=== PATIENT | female | born 1945 | race Caucasian/White ===

== ENCOUNTER → 2018-10-07 14:07 | Outpatient (CLI) | payer MEDICARE, OTHER, SELFPAY ==
[2018-10-07 14:45] LABS: Basophils # 0.1 K/mm3 (0-0.2); Basophils % 0.6 % (0.1-2.0); Eosinophils # 0.3 K/mm3 (0.0-0.4); Eosinophils % 2.5 % (0.1-12.0); Hemoglobin 12.7 g/dL (12.2-16.2); Lymphocytes # 6.6 K/mm3 (0.7-4.5); Lymphocytes % 50.1 % (10-50); Mean Corpuscular HGB Conc 32.7 g/dL (31.8-35.4); Mean Corpuscular Hemoglobin 28.8 pg (27.0-31.2); Mean Corpuscular Volume 88.2 fl (81-99); Mean Platelet Volume 6.8 fl (7.4-10.4); Monocytes # 0.4 K/mm3 (0.1-1.0); Monocytes % 2.9 % (1.7-9.3); Neutrophils # 5.7 K/mm3 (1.8-7.8); Neutrophils % 43.9 % (37.0-80.0); Platelet Count 414 K/mm3 (142-424); Red Blood Count 4.43 M/mm3 (4.20-5.40); Red Cell Distribution Width 13.4 % (11.5-17.5); White Blood Count 13.1 K/mm3 (4.8-10.8)
[2018-10-07 14:53] LABS: MANUAL DIFFERENTIAL MANUAL DIFFERENTIAL (MANUAL DIFF)
[2018-10-07 15:43] LABS: Free T4 (Free Thyroxine) 1.01 ng/dl (0.76-1.46); Thyroid Stimulating Hormone 2.17 uIU/ml (0.358-3.740)
[2018-10-07 16:25] LABS: Eosinophils % 4 % (0-3); Lymphocytes % 48 % (10-50); Monocytes % 3 % (2-9); Neutrophils % 45 % (42-76); Platelet Estimate Normal; RBC Morphology Normal; Total Cells Counted 100
== END ==
PROVIDERS: Visit Provider Otolaryngology
DX: E03.9 Hypothyroidism, unspecified (principal); Z01.818 Encounter for other preprocedural examination; L98.9 Disorder of the skin and subcutaneous tissue, unspecified
CPT/HCPCS: 36415; 84439; 84443; 85007; 85025; 93005

== ENCOUNTER → 2018-10-25 09:33 | Outpatient (CLI) | payer MEDICARE, OTHER, SELFPAY ==
--- NOTE | 2018-10-25 09:35 | XR_ITS ---
XR DEXA axial skeleton HISTORY: ITS.REASON: POST MENOPAUSAL SCREENING ORDERING PHYSICIAN: Andres Hendrix MD PATIENT AGE: 73 years COMPARISON: None FINDINGS: The BMD measured at the Left femoral neck is 0.760 g/cm squared with a T score of -2.0. This is considered Osteopenic according to the World Health Organization criteria. Fracture risk is Moderate. The L1 L4 density T score of -0.2.. IMPRESSION: Osteopenia with moderate fracture risk. Treatment is advised. Suggest follow-up exam September 2020
--- NOTE | 2018-10-25 09:35 | US_ITS ---
US thyroid HISTORY: Thyroid nodule follow-up ITS.REASON: Hypothyroid ORDERING PHYSICIAN: Andres Hendrix MD PATIENT AGE: 73 years Comparison: None FINDINGS: The isthmus is slightly prominent at 6 mm. The right lobe is 4.4 x 1.7 x 1.5 cm. Nodule A: 7 x 5 mm mixed echogenicity. Nodule B: Upper pole isoechoic 11 x 8 mm. Nodule C: Mid polar region 6 mm isoechoic Nodule B lower pole cystic at 4 mm The left lobe is 3.9 x 1.3 x 1.2 cm. 11 mm isoechoic nodule superior pole IMPRESSION: Mildly enlarged right lobe of the thyroid gland with multiple bilateral nodules which have a low level of suspicion for malignancy
== END ==
PROVIDERS: PCP Pediatrics; Visit Provider Otolaryngology
DX: E03.9 Hypothyroidism, unspecified (principal); Z13.820 Encounter for screening for osteoporosis; Z78.0 Asymptomatic menopausal state
CPT/HCPCS: 76536; 77080

== ENCOUNTER → 2018-11-01 11:16 | Outpatient (CLI) | payer MEDICARE, OTHER, SELFPAY ==
[2018-11-01 13:27] LABS: Free T4 (Free Thyroxine) 1.01 ng/dl (0.76-1.46); Thyroid Stimulating Hormone 3.59 uIU/ml (0.358-3.740)
[2018-11-02 08:33] LABS: Thyroid Peroxidase Antibodies 10 IU/mL (0-34)
[2018-11-04 06:16] LABS: Thyroid Stimulating Immunoglob <0.10 IU/L (0.00-0.55)
== END ==
PROVIDERS: Visit Provider Otolaryngology
DX: E03.9 Hypothyroidism, unspecified (principal)
CPT/HCPCS: 36415; 84439; 84443; 84445; 86376

== ENCOUNTER → 2019-05-13 14:06 | Outpatient (CLI) | payer MEDICARE, OTHER, SELFPAY ==
--- NOTE | 2019-05-13 14:07 | US_ITS ---
PROCEDURE: US THYROID CLINICAL INDICATION: Enlarged thyroid Follow-up thyroid nodules COMPARISON: THY US thyroid from 10/25/2018 FINDINGS: Right lobe: The right lobe is 4.5 x 1.8 x 2.2 cm. There is a 1 cm by 1.2 cm lobular nodule within the right lobe superiorly fairly well-circumscribed and mildly hypoechoic unchanged. The the spongiform nodule noted in the mid lobe at 1 cm. 1.7 x 1.7 cm hypoechoic area lower pole not significantly changed considering the difference in scanning technique. There is a 4 mm cyst in the mid polar region unchanged. Left lobe: The 3.8 x 1.6 x 1.3 cm. Isoechoic 1 cm area mid polar region unchanged Isthmus: The isthmus is thickened at 7 mm Additional findings: IMPRESSION: Enlarged thyroid gland with multiple nodular areas unchanged Dictated by: Zi Ocampo MD 05/13/2019 17:55 Electronically signed by Zi Ocampo MD in [place] 05/13/2019 17:55
== END ==
PROVIDERS: PCP Pediatrics; Visit Provider Otolaryngology
DX: E04.9 Nontoxic goiter, unspecified (principal)
CPT/HCPCS: 76536

== ENCOUNTER → 2019-12-02 12:41 | Outpatient (CLI) | payer MEDICARE, SELFPAY ==
--- NOTE | 2019-12-02 12:41 | US_ITS ---
PROCEDURE: US THYROID CLINICAL INDICATION: thyroid nodule Follow-up thyroid nodules COMPARISON: THY US thyroid from 10/25/2018 US THYROID from 05/13/2019 FINDINGS: The right lobe is 4.8 x 2 x 1.5 cm. There is heterogeneous echogenicity. The images are somewhat limited technically. In the upper pole there is a 17 x 6 mm ill-defined hypoechoic nodular region previously at 12 x 7 mm. This nodule is not well delineated and the measurements are questionable. An 18 x 9 mm hypoechoic nodules present also in the upper pole. A 19 by 12 mm nodules noted in the lower pole not significantly changed. The left lobe is 3.9 0.2 cm. There is a 7 mm isoechoic nodule in the mid polar region on the left not significantly changed. IMPRESSION: Limited exam. Multiple bilateral nodules. The nodules in the upper pole on the right hip may have increased in size. This however is difficult to ascertain due to the technique. Probably overall no significant change considering the difference in technique. Suggest follow-up exam in 3 months with direct physician supervision Dictated by: Zi Ocampo MD 12/05/2019 10:05 Electronically signed by Zi Ocampo MD in [place] 12/05/2019 10:05
[2019-12-02 16:51] LABS: Free T4 (Free Thyroxine) 0.93 ng/dl (0.78-2.19)
[2019-12-02 17:06] LABS: Thyroid Stimulating Hormone 3.11 uIU/mL (0.465-4.68)
== END ==
PROVIDERS: PCP Pediatrics; Visit Provider Otolaryngology
DX: E04.9 Nontoxic goiter, unspecified (principal)
CPT/HCPCS: 36415; 76536; 84439; 84443

== ENCOUNTER → 2020-03-12 12:53 | Outpatient (CLI) | payer MEDICARE, SELFPAY ==
--- NOTE | 2020-03-12 12:54 | US_ITS ---
PROCEDURE: US THYROID CLINICAL INDICATION: thyroid nodule Follow-up thyroid nodule COMPARISON: US US THYROID from 12/02/2019 FINDINGS: The isthmus is prominent at 8 mm. The right lobe is 4.4 x 2 x 2.1 cm. There is a 14 x 7 mm isodense slightly hypoechoic nodule in the upper pole unchanged posteriorly. In the mid polar region there is a 10 mm isoechoic nodule unchanged. Small cyst is present in the lower pole at 4 mm with a central septation. In the lower pole there is a spongiform appearing nodule at 19 by 17 mm not significantly changed The left lobe is 3.8 x 1.5 x 1.5 cm. Isoechoic nodules present posteriorly and centrally at 7 mm unchanged IMPRESSION: No change enlarged right lobe of the thyroid gland with multiple nodules and no change in the single left thyroid nodule. Dictated by: Zi Ocampo MD 03/12/2020 15:03 Zi Ocampo MD in [place] 03/12/2020 15:05
== END ==
PROVIDERS: PCP Pediatrics; Visit Provider Otolaryngology
DX: E04.1 Nontoxic single thyroid nodule (principal)
CPT/HCPCS: 76536

== ENCOUNTER → 2020-04-04 08:36 | Outpatient (CLI) | payer MEDICARE, SELFPAY ==
--- NOTE | 2020-04-04 08:46 | CT_ITS ---
PROCEDURE: CT SOFT TISSUE NECK WO/W CON CLINICAL HISTORY: trachea displacement/goiter no palpable areas c/o wheezing 75ml optiray 350 US 03/12/[address] COMPARISON: US US THYROID from 03/12/2020 TECHNIQUE: Contrast: 75 mL Optiray 350 IV Axial images obtained with sagittal and coronal reformats. All CT scans at the facility use one or more dose reduction, viz: automated exposure control, ma/kV adjustment per patient size (including targeted exams where dose is matched to indication, i.e. head), or iterative reconstruction technique. FINDINGS: Unenhanced images show bilateral punctate calcifications within the tonsillar area consistent with tonsillar calcified crypts. The nasopharynx, oropharynx, and hypopharynx have an unremarkable appearance. Epiglottis appears unremarkable. The salivary glands have an unremarkable appearance. No dominant adenopathy is evident. There are few small cervical lymph nodes. The isthmus of the thyroid gland is slightly prominent more so on the right. The trachea is very slightly to the left of midline but does not appear to be a result of compression by the thyroid gland. The esophagus is midline. The lung apices are clear. There are mild degenerative changes in the cervical spine at C5-C6. IMPRESSION: Essentially unremarkable CT of the neck without and with contrast. The trachea is very slightly to the left of midline but without obvious compression. The isthmus of the thyroid is slightly prominent slightly more so on the right side. Dictated by: Zi Ocampo MD 04/05/2020 12:22 Zi Ocampo MD in [place] 04/05/2020 12:22
[2020-04-04 09:00] LABS: Blood Urea Nitrogen 22 mg/dl (7-17); Estimated Glomerular Filt Rate 55 ml/min (>60); GFR (African American) 66 ML/MIN (>60)
--- NOTE | 2020-04-04 09:30 | US_ITS ---
PROCEDURE: US FNA THYROID CLINICAL INDICATION: Right thyroid dominant nodule COMPARISON: US US THYROID from 03/12/2020 TECHNIQUE: Pre biopsy images performed confirming the presence of a dominant solid nodule in the right lobe of the thyroid gland. Following obtaining informed consent, using aseptic technique and local anesthesia with buffered lidocaine, fine-needle aspiration was performed of the nodule of interest using sonographic guidance. 3 passes were made into the nodule with a 21 gauge needle. Specimen was given to cytology. The patient tolerated the procedure well without evidence of immediate complications and left radiology suite in stable condition FINDINGS: CYTOLOGY: Negative for malignant cells. Please see cytology report IMPRESSION: Uneventful ultrasound-guided FNA of the right lobe of the thyroid gland negative for malignant cells. Dictated by: Zi Ocampo MD 04/09/2020 09:28 Zi Ocampo MD in [place] 04/09/2020 09:28
== END ==
PROVIDERS: PCP Pediatrics; Visit Provider Otolaryngology
DX: E04.1 Nontoxic single thyroid nodule (principal)
CPT/HCPCS: 10005; 36415; 70492; 76942; 82565; 84520; 88173; Q9967

== ENCOUNTER → 2020-04-18 13:50 | Outpatient (CLI) | payer MEDICARE, SELFPAY | PROVIDERS: PCP Pediatrics; Visit Provider Otolaryngology | DX: G47.33 Obstructive sleep apnea (adult) (pediatric) (principal) ==

== ENCOUNTER → 2020-04-30 13:22 | Outpatient (CLI) | payer MEDICARE, SELFPAY | PROVIDERS: PCP Pediatrics; Visit Provider Otolaryngology | DX: G47.33 Obstructive sleep apnea (adult) (pediatric) (principal) | CPT/HCPCS: G0399 ==

== ENCOUNTER 2022-08-17 14:58 | Observation (INO) | payer MEDICARE, SELFPAY ==
[2022-08-17] VITALS (15 sets, daily range): BP systolic 103–192; BP diastolic 48–99; PULSE 73–92; RESP 17–23; TEMP 36.4–37; O2SAT 94–98; BMI 48.0; BMI 48.6
--- NOTE | 2022-08-17 14:56 | ECG_ITS ---
APPROVED REPORT Exam: Resting ECG HR:92 bpm ECG Measurements Heart Rate 92 AXES KS 158 P 76 QRSd 84 QRS -4 QT 361 T 72 QTc 410 Conclusion SINUS RHYTHM MINIMAL ST DEPRESSION [0.025+ mV ST DEPRESSION] BORDERLINE ECG UNCONFIRMED REPORT Electronically signed by : Jonel Damico MD 08/18/2022 18:53:28
--- NOTE | 2022-08-17 15:02 | XR_ITS ---
PROCEDURE INFORMATION: Exam: XR Chest Exam date and time: 08/17/2022 3:20 PM Age: 76 years old Clinical indication: Sternal or substernal pain; Additional info: Chest pain TECHNIQUE: Imaging protocol: Radiologic exam of the chest. Views: 2 views. COMPARISON: CT SOFT TISSUE NECK WO/W CON 04/04/2020 9:18 AM FINDINGS: Lungs: Unremarkable. No consolidation. Pleural spaces: Unremarkable. No pleural effusion. No pneumothorax. Heart/Mediastinum: Unremarkable. No cardiomegaly. Bones/joints: Unremarkable. IMPRESSION: No acute findings.
[2022-08-17 15:18] LABS: Anion Gap 11.1 mEq/L (5-15); Basophils # 0.3 K/mm3 (0-0.2); Basophils % 1.6 % (0.1-2.0); Blood Urea Nitrogen 16 mg/dl (7-17); Calcium 9.1 mg/dl (8.4-10.2); Carbon Dioxide 27 mmol/L (22.0-30.0); Chloride 105 mmol/L (98-107); Creatinine Clearance Estimated 39 mL/min (50-200); Eosinophils # 0.5 K/mm3 (0.0-0.4); Eosinophils % 2.7 % (0.1-12.0); Estimated Glomerular Filt Rate 49 ml/min (>60); GFR (African American) 59 ML/MIN (>60); Glucose 251 mg/dl (74-100); Lymphocytes # 8.4 K/mm3 (0.7-4.5); Lymphocytes % 50.3 % (10-50); Mean Corpuscular HGB Conc 33.2 g/dL (31.8-35.4); Mean Corpuscular Hemoglobin 27.4 pg (27.0-31.2); Mean Corpuscular Volume 82.4 fl (81-99); Mean Platelet Volume 7.8 fl (7.4-10.4); Monocytes # 0.4 K/mm3 (0.1-1.0); Monocytes % 2.5 % (1.7-9.3); Neutrophils # 7.2 K/mm3 (1.8-7.8); Platelet Count 422 K/mm3 (142-424); Potassium 4.1 mmoL/L (3.5-5.1); Red Blood Count 4.37 M/mm3 (4.20-5.40); Red Cell Distribution Width 15.1 % (11.5-17.5); Sodium 139 mmol/L (136-145); White Blood Count 16.7 K/mm3 (4.8-10.8)
[2022-08-17 15:22] LABS: MANUAL DIFFERENTIAL MANUAL DIFFERENTIAL (MANUAL DIFF)
[2022-08-17 15:40] LABS: Troponin I < 0.01 ng/ml (0.00-0.034)
--- NOTE | 2022-08-17 16:15 | PC.NURSE ---
PT FAMILY MEMBER AT BEDSIDE NO COMPLAINTS AT THIS TIME
[2022-08-17 16:24] LABS: Lymphocytes % 45 % (10-50); Microcytosis 1+; Monocytes % 8 % (2-9); Neutrophils % 47 % (42-76); Platelet Estimate Normal; Total Cells Counted 100
--- NOTE | 2022-08-17 17:39 | HMH.EDCP ---
Discharge Plan Disposition Patient Disposition: Admitted as Observation Condition: Good Chief Complaint: Chest Pain Prescriptions Prescriptions: No Action atorvastatin 40 mg tablet 40 mg PO DAILY carvedilol 6.25 mg tablet 6.25 mg PO DAILY omeprazole 40 mg capsule,delayed release(DR/EC) 40 mg PO DAILY metformin 1,000 mg tablet 1,000 mg PO BID glimepiride 4 mg tablet 4 mg PO DAILY montelukast 10 mg tablet 10 mg PO DAILY naproxen 500 mg tablet 500 mg PO BID PRN (Reason: Arthritis) olmesartan-hydrochlorothiazide 40-12.5 mg tablet 1 tab PO DAILY insulin glargine [Lantus Solostar U-100 Insulin] 100 unit/mL (3 mL) insulin pen See Protocol SQ ACHS Protocol: Insulin Corrective Low-Dose Regimen Condition: Fingerstick Blood Glucose Dose/Route: Insulin Units Condition: 151-200 mg/dl Dose/Route: 2 unit/SQ Condition: 201-250 mg/dl Dose/Route: 4 units/SQ Condition: 251-300 mg/dl Dose/Route: 6 units/SQ Condition: 301-350 mg/dl Dose/Route: 8 units/SQ Condition: 351-400 mg/dl Dose/Route: 10 units/SQ Condition: 401-450 mg/dl Dose/Route: 12 units/SQ Condition: > 450 mg/dl Dose/Route: CALL MD Protocol Text: Low Intensity Sliding Scale Insulin Referrals Follow up/Referrals: Jonas Villalba II, MD [Primary Care Provider] - See instructions Clinical Impressions Clinical Impression: Chest pain Discharge ED Provider: Greg Sanchez Chest Pain HPI General Chief Complaint: Chest Pain Stated Complaint: chest pain Time Seen by Provider: 08/17/22 17:54 Mode of Arrival: Ambulatory Source of Information: Patient Limitations: No Limitations Description of Symptoms (Recalled from ER Triage Doc. by RN): Pt reports constant chest pain since August 04 that worsened last night with left arm tingling and radiating to my left shoulder and back , reports [place] provider ran EKG and referred to stress test 08/04 but recieved no f/u call for appt yet, NAD History of Present Illness HPI narrative: Patient presents to the emergency department with chest pain. She states for the last 2 weeks it has become more frequent in nature lasting several minutes at a time. She mostly describes this pain in her left chest radiating into her left arm with some left arm tingling. She does describes associated shortness of breath. Denies any nausea, vomiting, previous history of cardiac related problems. Patient denies having cardiac catheterization in the past. Denies having a process planner. States that she still has some left-sided chest pain. States that the pain has improved GEOVANY Score for Non-Stemi Age of Patient: 70-79 years old Heart Rate: 90-109 bpm Systolic Blood Pressure: 120-139 mmhg Serum Creatinine: 0.80-1.19 mg/dl CHF Killip Class: I-No CHF Other Risk Factors: None Non-Stemi Risk Score: 131 Risk Stratification: 109-140 = Intermediate Ri Related Data On Oral Contraceptives: No Home Medications Medication Instructions Recorded Confirmed atorvastatin 40 mg tablet 40 mg PO DAILY Cholesterol 08/17/22 08/17/22 carvedilol 6.25 mg tablet 6.25 mg PO DAILY Heart 08/17/22 08/17/22 glimepiride 4 mg tablet 4 mg PO DAILY DM II 08/17/22 08/17/22 insulin glargine 100 unit/mL (3 See Protocol SQ ACHS Hyperglycemia 08/17/22 08/17/22 mL) subcutaneous pen (Lantus Solostar U-100 Insulin) metformin 1,000 mg tablet 1,000 mg PO BID DM II 08/17/22 08/17/22 montelukast 10 mg tablet 10 mg PO DAILY Seasonal Allergies 08/17/22 08/17/22 naproxen 500 mg tablet 500 mg PO BID PRN Arthritis 08/17/22 08/17/22 olmesartan 40 1 tab PO DAILY Cholesterol 08/17/22 08/17/22 mg-hydrochlorothiazide 12.5 mg tablet omeprazole 40 mg capsule,delayed 40 mg PO DAILY GERD 08/17/22 08/17/22 release Allergies Allergy/AdvReac Type Severity Reaction Status Date / Time No Known Allergies Allergy Verified 07/04/20 13:36 [facility] Disclaimer: The information cont
--- NOTE | 2022-08-17 17:50 | PC.NURSE ---
Pt's second troponin drawn and sent
--- NOTE | 2022-08-17 17:54 | PC.NURSE ---
rounded on pt, no needs at this time
[2022-08-17 18:03] LABS: Hemoglobin A1C 7.8 % (4.0-6.0)
--- NOTE | 2022-08-17 18:04 | PC.NURSE ---
CHECKED ON PT STATED NO COMPLAINTS AT THIS TIME, FAMILY MEMBER AT BEDSIDE
[2022-08-17 18:14] LABS: Coronavirus 19, PCR Not Detected (NotDetected)
[2022-08-17 18:15] LABS: Influenza A, PCR Not Detected (NotDetected); Influenza B, PCR Not Detected (NotDetected)
[2022-08-17 18:26] LABS: Troponin I < 0.01 ng/ml (0.00-0.034)
--- NOTE | 2022-08-17 19:25 | PC.NURSE ---
nelia bradford on second floor states she will be sending staff down to transport pt to assigned room -NELIA Polo
--- NOTE | 2022-08-17 19:51 | PC.NURSE ---
Pt arrived to floor via stretcher @ 194.
--- NOTE | 2022-08-17 19:52 | PC.NURSE ---
Pt arrived to floor via wheelchair @ 1944
--- NOTE | 2022-08-17 20:11 | EXP.HP ---
History of Present Illness *Admission Date: 08/17/22 *Reason for visit:: Chest pain *History of present illness: This is a 76-year-old female with a past medical history of T1DM hypertension who presents emergency department midsternal chest pain. She reports midsternal chest pain started approximately 2 weeks ago. She saw her primary care provider who performed EKG that was essentially negative. She reports that she is was to follow-up for a stress test but has yet to schedule this. She reports over the last several days she has had worsening substernal chest pain that has radiated into her left shoulder, left arm and is associated with tingling and numbness of her left arm. She also reports increased shortness of breath over the past year, worse with ambulation. She also states that she has had some minimal bilateral lower extremity edema recently. She denies cough, fever, palpitations. Emergency department work-up mostly unremarkable. EKG negative. Nitro was effective for her midsternal chest pain. Given increased for cardiac disease, she will be admitted for further evaluation [facility] Disclaimer: The information contained in this section may have been updated after the patient was seen, as this information can be updated by other users. Medical History Arthritis GERD (gastroesophageal reflux disease) History of skin cancer HLD (hyperlipidemia) HTN (hypertension) Morbid obesity YOANA (obstructive sleep apnea) Type 2 diabetes mellitus Surgical History (Updated 08/17/22 @ 18:12 by Gala Espitia RN) History of bilateral knee arthroplasty History of bladder surgery History of cholecystectomy History of tubal ligation Hx of local excision of skin lesion Family History (Updated 08/17/22 @ 18:09 by Gala Espitia RN) Family history of stroke Family history of diabetes mellitus Family history of hypertension Social History (Updated 08/17/22 @ 18:12 by Gala Espitia RN) Smoking Status: Never smoker alcohol intake: never substance use type: denies use current occupational status: retired Travel in the last 8 weeks: None household members: spouse housing: house marital status: current occupational exposures/hazards: No caffeine: Yes Review of Systems Review of Systems Review of systems:: pertinent systems reviewed and negative unless documented below *Cardiovascular Cardiovascular: Reports chest pain, Reports dyspnea and Reports leg edema *Respiratory Respiratory: Reports dyspnea Meds Home Medications and Allergies Home Medications Medication Instructions Recorded Confirmed Type glimepiride 4 mg tablet 4 mg PO DAILY Diabetes 08/17/22 08/17/22 History insulin glargine 100 unit/mL (3 70 unit SQ AM Diabetes 08/17/22 08/18/22 History mL) subcutaneous pen (Lantus Solostar U-100 Insulin) metformin 1,000 mg tablet 1,000 mg PO BID Diabetes 08/17/22 08/17/22 History montelukast 10 mg tablet 10 mg PO PM Seasonal Allergies 08/17/22 08/18/22 History naproxen 500 mg tablet 500 mg PO BIDP PRN Arthritis 08/17/22 08/18/22 History omeprazole 40 mg capsule,delayed 40 mg PO DAILY GERD 08/17/22 08/17/22 History release atorvastatin 80 mg tablet 80 mg PO HS 30 days #30 tabs 08/18/22 Rx olmesartan 40 1 tab PO DAILY 30 days #30 tabs 08/18/22 Rx mg-hydrochlorothiazide 25 mg tablet spironolactone 25 mg tablet 50 mg PO DAILY 30 days #60 tabs 08/18/22 Rx New Prescriptions to Start Prescriptions: atorvastatin Jonas Oliver olmesartan-hydrochlorothiazide Jonas Oliver spironolactone Jonas Oliver Allergies Allergy/AdvReac Type Severity Reaction Status Date / Time No Known Allergies Allergy Verified 07/04/20 13:36 Exam Data for Last 24 hours Vital signs and Labs for Last 24 Hours: Temp Pulse Resp BP Pulse Ox 97.
[2022-08-17 21:20] LABS: POC Glucose,Bedside 205 (70-110)
[2022-08-17 22:08] LABS: Troponin I < 0.01 ng/ml (0.00-0.034)
[2022-08-18] VITALS (17 sets, daily range): BP systolic 118–155; BP diastolic 52–89; PULSE 70–90; RESP 16–20; TEMP 36.6–36.9; O2SAT 88–97; BMI 48.6
[2022-08-18 06:15] LABS: POC Glucose,Bedside 169 (70-110)
--- NOTE | 2022-08-18 06:25 | PC.NURSE ---
NO ACUTE CHANGES SINCE PT ARRIVED TO THE FLOOR. PT HAS HAD NO C/O CHEST PAIN OR SOB SINCE ARRIVING TO THE FLOOR. REMAINS ON ROOM AIR. AMBULATING TO BR WITH STANDBY ASSIST.
[2022-08-18 06:43] LABS: Chloride 107 mmol/L (98-107)
[2022-08-18 06:44] LABS: Potassium 4.2 mmoL/L (3.5-5.1); Sodium 141 mmol/L (136-145)
[2022-08-18 06:47] LABS: Alanine Aminotransferase 34 U/L (12-78); Albumin Level 3.6 g/dl (3.5-5.0); Albumin/Globulin Ratio 1.3 (1.1-1.8); Alkaline Phosphatase 133 U/L (38-126); Anion Gap 10.2 mEq/L (5-15); Aspartate Amino Transferase 34 U/L (14-36); Bilirubin,Total 0.3 mg/dl (0.2-1.3); Blood Urea Nitrogen 21 mg/dl (7-17); Calcium 8.4 mg/dl (8.4-10.2); Carbon Dioxide 28 mmol/L (22.0-30.0); Creatinine Clearance Estimated 36 mL/min (50-200); Estimated Glomerular Filt Rate 44 ml/min (>60); GFR (African American) 53 ML/MIN (>60); Globulin 2.8 g/dL (1.3-3.2); Glucose 157 mg/dl (74-100); Magnesium 1.4 mg/dl (1.6-2.3); Total Protein,Serum 6.4 g/dl (6.3-8.2)
[2022-08-18 06:50] LABS: Monocytes # 0.6 K/mm3 (0.1-1.0); Monocytes % 3.6 % (1.7-9.3)
[2022-08-18 07:00] LABS: Basophils # 0.2 K/mm3 (0-0.2); Basophils % 1.3 % (0.1-2.0); Eosinophils # 0.3 K/mm3 (0.0-0.4); Eosinophils % 2.2 % (0.1-12.0); Hematocrit 32.8 % (37.0-47.0); Lymphocytes # 7.6 K/mm3 (0.7-4.5); Lymphocytes % 48.5 % (10-50); Mean Corpuscular HGB Conc 32.5 g/dL (31.8-35.4); Mean Corpuscular Hemoglobin 27.1 pg (27.0-31.2); Mean Corpuscular Volume 83.2 fl (81-99); Mean Platelet Volume 8.2 fl (7.4-10.4); Neutrophils # 6.9 K/mm3 (1.8-7.8); Neutrophils % 44.4 % (37.0-80.0); Platelet Count 380 K/mm3 (142-424); Red Blood Count 3.95 M/mm3 (4.20-5.40); Red Cell Distribution Width 15.1 % (11.5-17.5); White Blood Count 15.6 K/mm3 (4.8-10.8)
[2022-08-18 07:01] LABS: Hemoglobin 10.7 g/dL (12.2-16.2); MANUAL DIFFERENTIAL MANUAL DIFFERENTIAL (MANUAL DIFF)
[2022-08-18 07:10] LABS: Chol/HDL Ratio 2.9 (1-3.5); Cholesterol 132 mg/dl (140-200); HDL Cholesterol 45 mg/dl (40-60); Triglycerides 291 mg/dl (30-150); VLDL Cholesterol 58 mg/dL (0-40)
[2022-08-18 07:21] LABS: Direct LDL Cholesterol 59.06 mg/dL (100-129)
[2022-08-18 07:29] LABS: Eosinophils % 1 % (0-3); Lymphocytes % 29 % (10-50); Monocytes % 6 % (2-9); Neutrophils % 64 % (42-76); Platelet Estimate Normal; RBC Morphology Normal; Total Cells Counted 100
--- NOTE | 2022-08-18 07:35 | HMH.PHAINT1 ---
Pharmacy Intervention Comments: MEDICATION RECONCILIATION COMPLETED ON PATIENT USING EXTERNAL FILL HISTORY FROM PHARMACY AND PATIENT INTERVIEW. -MELODY HAMILTON, GUNNARD
--- NOTE | 2022-08-18 07:54 | EXP.CARD.CON ---
History of Present Illness History of Present Illness Consult date: 08/18/22 Requesting physician: Jonas Oliver Consult reason: chest pain Chief complaint: chest pain, left arm pain Additional Medical History:: 1. Diabetes mellitus, diagnosed 2008 2. Hypertension 3. Hyperlipidemia A. LDL 59, triglycerides 291, HDL 45, total cholesterol 132 on 08/18/2022 4. Obesity 5. Status post cholecystectomy, hemorrhoidectomy and knee surgeries 6. Anemia with hemoglobin 10.7 on 08/18/2022 7. History of thyroid nodule with ultrasound-guided needle biopsy 03/2020, negative for malignant cells 8. YOANA History of present illness: This is a 76-year-old female with a past medical history of T1DM hypertension who presents emergency department midsternal chest pain.? She reports midsternal chest pain started approximately 2 weeks ago.? She saw her primary care provider who performed EKG that was essentially negative.? She reports that she is was to follow-up for a stress test but has yet to schedule this.? She reports over the last several days she has had worsening substernal chest pain that has radiated into her left shoulder, left arm and is associated with tingling and numbness of her left arm.? She also reports increased shortness of breath over the past year, worse with ambulation.? She also states that she has had some minimal bilateral lower extremity edema recently.? She denies cough, fever, palpitations. Emergency department work-up mostly unremarkable.? EKG negative.? Nitro was effective for her midsternal chest pain.? Given increased for cardiac disease, she will be admitted for further evaluation. The above per SCARLETT Marshall, for Dr. Oliver Patient confirms events as noted above. She states left arm pain has been increasingly present along with recurrent substernal chest discomfort over the last 1 to 2 weeks. She did receive a round of steroids for the chest pain that did briefly improve symptoms but did not alleviate them. Cardiology consulted for evaluation recommendation. Troponins have returned negative during this admission. EKG shows sinus rhythm with no acute ST segment changes. [facility] Disclaimer: The information contained in this section may have been updated after the patient was seen, as this information can be updated by other users. Medical History Arthritis GERD (gastroesophageal reflux disease) History of skin cancer HLD (hyperlipidemia) HTN (hypertension) Morbid obesity YOANA (obstructive sleep apnea) Type 2 diabetes mellitus Surgical History (Updated 08/17/22 @ 18:12 by Gala Espitia, NELIA) History of bilateral knee arthroplasty History of bladder surgery History of cholecystectomy History of tubal ligation Hx of local excision of skin lesion Family History (Updated 08/17/22 @ 18:09 by Gala Espitia, RN) Family history of stroke Family history of diabetes mellitus Family history of hypertension Social History (Updated 08/17/22 @ 18:12 by Gala Espitia, NELIA) Smoking Status: Never smoker alcohol intake: never substance use type: denies use current occupational status: retired Travel in the last 8 weeks: None household members: spouse housing: house marital status: current occupational exposures/hazards: No caffeine: Yes Review of Systems Review of Systems Review of systems:: pertinent systems reviewed and negative unless documented below *Cardiovascular Cardiovascular: Reports chest pain and Reports dyspnea on exertion *Respiratory Respiratory: Reports dyspnea on exertion Exam Data for Last 24 hours Vital signs and Labs for Last 24 Hours: Temp Pulse Resp BP Pulse Ox 98.1 F 88 18 145/73 H 94 L 08/18/22 07:24 08/18/22 07:24 08/18/22 07:24 08/18/22 07:24 08/18/22 07:24 Laboratory Results - last 24 hr 08/17/22 15:00: WBC 16.7 H, RBC 4.37, Hgb 12.0 L, Hct 36.0 L, MCV 82.4, MCH 27.4, M
--- NOTE | 2022-08-18 08:59 | IR_ITS ---
APPROVED REPORT Patient Location: Inpatient Bricklayer Tender: ALISSON Palmer RT (R) PROCEDURES Left heart catheterization Left ventriculogram Selective coronary angiogram INDICATION High pretest like for coronary artery disease, Acute coronary syndrome/unstable angina Informed consent was obtained prior to the procedure. COMPLICATIONS None Estimated Blood Loss: Less than 10 ml TECHNIQUE One percent lidocaine used to anesthetize the right anterior aspect of the wrist. The right radial artery was accessed via the Seldinger technique. A 6 Icelandic sheath was placed in the right radial artery. 2.5 mg of verapamil, 800 mcg of nitroglycerin, 1mg Lidocaine and 5000 U Heparin were given through the arterial sheath. The papa catheter was also used to perform left heart catheterization, left ventriculogram and selective coronary angiogram. At the end of the procedure the sheath was removed good hemostasis was achieved using Traclet band, patient was transferred to the postop holding area in stable condition. ANGIOGRAPHIC RESULTS The left main artery Normal The left anterior descending artery Normal The circumflex artery Large dominant normal The right coronary artery Nondominant normal The FINE ventriculogram reveals Normal to slightly hyperdynamic at 70% The left ventricular end-diastolic pressure Moderate to severely elevated at 30 mmHg IMPRESSION Normal coronary arteries Hyperdynamic ventricle consistent with diastolic dysfunction Elevated LVEDP also consistent with advanced diastolic dysfunction which is the etiology for patient's angina PLAN 1. Continue risk factor modification 2. Treatment of diastolic dysfunction which alleviate patient's angina Electronically signed by : Bari Rutherford MD 08/18/2022 11:43:14
--- NOTE | 2022-08-18 12:24 | EXP.DC.SUM ---
General Admission date:: 08/17/22 Discharge date: 08/18/22 HPI HPI HPI: This is a 76-year-old female with a past medical history of T1DM hypertension who presents emergency department midsternal chest pain. She reports midsternal chest pain started approximately 2 weeks ago. She saw her primary care provider who performed EKG that was essentially negative. She reports that she is was to follow-up for a stress test but has yet to schedule this. She reports over the last several days she has had worsening substernal chest pain that has radiated into her left shoulder, left arm and is associated with tingling and numbness of her left arm. She also reports increased shortness of breath over the past year, worse with ambulation. She also states that she has had some minimal bilateral lower extremity edema recently. She denies cough, fever, palpitations. Emergency department work-up mostly unremarkable. EKG negative. Nitro was effective for her midsternal chest pain. Given increased for cardiac disease, she will be admitted for further evaluation Hospital Course Hospital Course Hospital Course: Patient admitted for serial troponins and cardiology consult. Remained stable overnight. Patient taken for left heart cath in the morning. Chest pain resolved. Problems addressed as follows: Chest pain Hypertension Hyperlipidemia Patient initiated for monitoring overnight. Serial troponins remained undetectable. Pain improved with nitroglycerin. Cardiology was consulted, and evaluation in the morning they determined it was appropriate to take her for left heart cath to rule out clinically significant coronary artery disease given patient's risk factors with diabetes, hypertension, hyperlipidemia, and classic report of chest pain that is gotten worse. Left heart cath findings as follows: IMPRESSION Normal coronary arteries Hyperdynamic ventricle consistent with diastolic dysfunction Elevated LVEDP also consistent with advanced diastolic dysfunction which is the etiology for patient's angina PLAN 1. Continue risk factor modification 2. Treatment of diastolic dysfunction which alleviate patient's angina Plan to continue statin therapy, beta-shayne, fluid management per cardiology recommendations. See med rec for full details. Patient hemodynamically stable. Medically stable for discharge home with close follow-up with cardiology for further management. T1DM A1c obtained on admission. 7.8. Treated with long-acting and sliding scale insulin during admission. On discharge resume home regimen with oral and injectable agents. Further adjustments per PCP to achieve better glucose control. GERD: Continue home PPI Exam Data for Last 24 hours Vital signs and Labs for Last 24 Hours: Temp Pulse Resp BP Pulse Ox 98 F 73 20 129/68 95 08/18/22 11:48 08/18/22 12:15 08/18/22 12:15 08/18/22 12:15 08/18/22 12:15 Laboratory Results - last 24 hr 08/17/22 15:00: WBC 16.7 H, RBC 4.37, Hgb 12.0 L, Hct 36.0 L, MCV 82.4, MCH 27.4, MCHC 33.2, RDW 15.1, Plt Count 422, MPV 7.8, Neut % (Auto) 43.0, Lymph % (Auto) 50.3 H, Grayson % (Auto) 2.5, Eos % (Auto) 2.7, Baso % (Auto) 1.6, Neut # (Auto) 7.2, Lymph # (Auto) 8.4 H, Grayson # (Auto) 0.4, Eos # (Auto) 0.5 H, Baso # (Auto) 0.3 H, Total Counted 100, Neutrophils % (Manual) 47, Lymphocytes % (Manual) 45, Monocytes % (Manual) 8, Platelet Estimate Normal, Microcytosis 1+ 08/17/22 15:00: Sodium 139, Potassium 4.1, Chloride 105, Carbon Dioxide 27, Anion Gap 11.1, BUN 16, Creatinine 1.10 H, Estimated Creat Clear 39, Estimated GFR 49 L, Est GFR ( Amer) 59, Glucose 251 H, Calcium 9.1, Troponin I < 0.01 08/17/22 15:00: Hemoglobin A1c 7.8 H 08/17/22 17:45: Troponin I < 0.01 08/17/22 18:13: SARS-CoV-2 (PCR) Not detected, Influenza A Untype (PCR) Not detected, Influenza Type B (PCR) Not detected 08/17/22 20:19: POC Glucose 205 H 08/17/22 21:33: Troponin I < 0.01 08/18/22 05:55: POC Glucose 169 H 08/18/22 06:
[2022-08-18 12:46] LABS: POC Glucose,Bedside 144 (70-110)
--- NOTE | 2022-08-18 17:48 | CA_ITS ---
APPROVED REPORT EXAM: Comprehensive 2D, Doppler, and color-flow Echocardiogram Gear Room Keeper: LUIS Monteiro, RVS Ht: 5 ft 4 in Wt: 280lbs BSA: 2.26 BP: 136/69 mmHg Indications: CP, Left arm pain, HTTN, HLD, DM, SOB, Obesity, Abn ekg 2D Dimensions Aortic Root 2.72 cm LA Volume 71.60 mL Left Atrium 3.65 cm LA Volume Index 31.70 mL/m2 (M/F) 16-34 LVOT 2.06 cm (M/F) 1.5-2.5 M-Mode Dimensions RVDd 2.81 cm (0.9-2.6) LA Diam 4.24 cm (1.9-4.0) LVDd 5.22 cm (3.5-5.7) Ao Diam 2.95 cm (2.0-3.7) LVDs 3.29 cm (3.5-5.7) IVSd 1.24 cm (0.6-1.1) PWd 0.96 cm (0.6-1.1) EF (Teich) 66.50% EPSs 0.52 cm FS 37.00% EDV (Teich) 130.70 mL TAPSE 1.79 (<1.7) ESV (Teich) 43.80 mL LV Diastology E Decel Time 267.00 (160-240 msec) E/A Ratio 0.93 MED E' 5.80 (< 7 cm/sec) MED A' 9.70 cm/s E'/MED E' Ratio 19.79 (>14) LAT E' 7.30 (<10 cm/sec) LAT A' 9.90 cm/s E/LAT E' Ratio 15.73 (>14) Aortic Valve LVOT Max 108.00 (70-110 cm/s) LVOT VTI 23.51 cm AoV Peak Braden. 196.00 (50-130 cm/s) AO Peak GR. 15.30 mmHg AO Mean GR. 8.30 (<5 mmHg) AO VTI 39.75 (18-25 cm) JANE (VTI) 1.97 (2.5-4.5 cm2) Mitral Valve MV A Velocity 124.00 (40-130 cm/s) E/A Ratio 0.93 MV Decel. Time 267.00 (160-240 ms) MV PHT 77.00 ms Pulmonary Valve PV Peak Velocity 122.00 (50-150 cm/s) Tricuspid Valve TR P. Velocity 262.00 cm/s RVSP 37.00 mmHg Left Ventricle Left atrium is mildly enlarged, left ventricle is normal size, mild concentric left ventricular hypertrophy, estimated ejection fraction 55% with no regional wall motion abnormality, grade 1 diastolic dysfunction seen with tissue Doppler evidence of raise left atrial pressure. Right Ventricle Right atrium and right ventricle are mildly enlarged with normal contractility. Aortic Valve Aortic valve is thickened and calcified without aortic stenosis aortic insufficiency. Mitral Valve Mitral valve is grossly normal, there is trace mitral regurgitation. Tricuspid Valve Tricuspid valve grossly normal, there is trace tricuspid regurgitation, tricuspid regurgitation jet velocity is inadequate for calculation of the right ventricular systolic pressure. Pulmonic Valve Pulmonic valve is poorly visualized. Great Vessels Aortic root is normal size. Inferior vena cava is poorly visualized. Pericardium No significant pericardial effusion noted. Conclusion 1. Mild biatrial enlargement, normal left ventricular size, estimated ejection fraction 55% with no regional wall motion abnormality, grade 1 diastolic dysfunction seen without tissue Doppler evidence of raise left atrial pressure. 2. Mildly enlarged right ventricle with normal contractility. 3. Trace mitral and tricuspid regurgitation. 4. No significant pericardial effusion noted. 5. Inferior vena cava is poorly visualized. Electronically signed by : George Gallego MD 08/18/2022 17:59:05
--- NOTE | 2022-08-19 13:23 | CARE MANAGER ---
Contacted patient related to hospital discharge. She states she picked up her medications and is aware of her follow up appointments. Denies questions at this time. NELIA Torres
== END 2022-08-18 17:18 | disposition home or self-care (01) ==
LOC: ER 17:53 → 2ND 17:59
PROVIDERS: Internal Medicine; Admitting Provider Internal Medicine Adolescent Medicine; Emergency Provider Emergency Medicine; PCP Radiology Radiation Oncology; Visit Provider Internal Medicine Adolescent Medicine
DX: R07.9 Chest pain, unspecified (principal); I10 Essential (primary) hypertension; E78.5 Hyperlipidemia, unspecified; G47.33 Obstructive sleep apnea (adult) (pediatric); K21.9 Gastro-esophageal reflux disease without esophagitis; Z79.4 Long term (current) use of insulin; E11.9 Type 2 diabetes mellitus without complications; Z79.899 Other long term (current) drug therapy; I25.10 Atherosclerotic heart disease of native coronary artery without angina pectoris; Z20.822 Contact with and (suspected) exposure to COVID-19
CPT/HCPCS: G0378; 36415; 71046; 80048; 80053; 80061; 82962; 83036; 83735; 84484; 85007; 85025; 93005; 93306; 93458; 99152; 99285; C1725; C1760; C1769; C9803; J1644; J3475; Q9967; U0003; U0005

== ENCOUNTER → 2022-08-27 13:39 | Outpatient (CLI) | payer MEDICARE, SELFPAY ==
[2022-08-27 14:40] LABS: Anion Gap 12.9 mEq/L (5-15); Blood Urea Nitrogen 18 mg/dl (7-17); Calcium 9.9 mg/dl (8.4-10.2); Carbon Dioxide 28 mmol/L (22.0-30.0); Chloride 101 mmol/L (98-107); Estimated Glomerular Filt Rate 54 ml/min (>60); GFR (African American) 66 ML/MIN (>60); Glucose 205 mg/dl (74-100); Magnesium 1.6 mg/dl (1.6-2.3); Potassium 4.9 mmoL/L (3.5-5.1); Sodium 137 mmol/L (136-145)
[2022-08-27 14:48] LABS: NT Pro Brain Natriuretic Pep. 26.9 pg/mL (0-125)
== END ==
PROVIDERS: PCP Pediatrics; Visit Provider Physician Assistant
DX: E78.5 Hyperlipidemia, unspecified; G47.33 Obstructive sleep apnea (adult) (pediatric); I10 Essential (primary) hypertension; K21.9 Gastro-esophageal reflux disease without esophagitis; E10.69 Type 1 diabetes mellitus with other specified complication; R06.09 Other forms of dyspnea; R94.30 Abnormal result of cardiovascular function study, unspecified; Z79.4 Long term (current) use of insulin
CPT/HCPCS: 36415; 80048; 83735; 83880

== ENCOUNTER → 2023-01-20 09:36 | Outpatient (CLI) | payer MEDICARE, SELFPAY ==
[2023-01-20 11:20] LABS: Anion Gap 15.7 mEq/L (5-15); Blood Urea Nitrogen 29 mg/dl (7-17); Calcium 9.8 mg/dl (8.4-10.2); Carbon Dioxide 22 mmol/L (22.0-30.0); Chloride 107 mmol/L (98-107); Estimated Glomerular Filt Rate 40 ml/min (>60); GFR (African American) 48 ML/MIN (>60); Glucose 119 mg/dl (74-100); Potassium 4.7 mmoL/L (3.5-5.1); Sodium 140 mmol/L (136-145)
== END ==
PROVIDERS: PCP Pediatrics; Visit Provider Nurse Practitioner
DX: E78.5 Hyperlipidemia, unspecified (principal); I10 Essential (primary) hypertension; R06.09 Other forms of dyspnea; R07.9 Chest pain, unspecified
CPT/HCPCS: 80048

== ENCOUNTER → 2023-02-03 09:19 | Outpatient (POV) | payer MEDICARE, SELFPAY | PROVIDERS: Visit Provider Dermatology | DX: Z00.00 Encounter for general adult medical examination without abnormal findings (principal) ==

== ENCOUNTER → 2023-02-05 11:01 | Outpatient (CLI) | payer MEDICARE, SELFPAY ==
[2023-02-05 12:11] LABS: Chloride 104 mmol/L (98-107); Potassium 4.6 mmoL/L (3.5-5.1); Sodium 141 mmol/L (136-145)
[2023-02-05 12:14] LABS: Blood Urea Nitrogen 21 mg/dl (7-17); Estimated Glomerular Filt Rate 54 ml/min (>60); GFR (African American) 65 ML/MIN (>60)
[2023-02-05 12:15] LABS: Anion Gap 16.6 mEq/L (5-15); Calcium 10.3 mg/dl (8.4-10.2); Carbon Dioxide 25 mmol/L (22.0-30.0); Glucose 133 mg/dl (74-100)
== END ==
PROVIDERS: PCP Pediatrics; Visit Provider Nurse Practitioner
DX: E78.5 Hyperlipidemia, unspecified (principal); I10 Essential (primary) hypertension; R06.00 Dyspnea, unspecified; R94.30 Abnormal result of cardiovascular function study, unspecified
CPT/HCPCS: 36415; 80048

== ENCOUNTER 2023-08-24 13:00 | Outpatient (RCR) | payer MEDICARE, SELFPAY | END 2023-08-24 14:20 | disposition home or self-care (01) | LOC: PT 13:00 | PROVIDERS: PCP Pediatrics; Visit Provider Psychiatry & Neurology Neurology | DX: M54.12 Radiculopathy, cervical region (principal) | CPT/HCPCS: 97010; 97110; 97140; 97163; 97164 ==

== ENCOUNTER 2023-09-09 13:02 | Outpatient (POV) | payer MEDICARE, SELFPAY ==
--- NOTE | 2023-09-09 13:11 | A.OFFVIS_ITS ---
HPI Data of Consult Patient: new to practice Consult date: 09/09/23 Requesting Physician: Lisa Mckenna APRN Primary Care Provider: Milton Villalba Consult Narrative History of present illness: Ms. Orozco is a 77 year old female presents today as a new patient. She is a referral from [facility]. Today she rates her pain a 3 out of 10 however she states that it will worsen as the day goes on. Patient states that the pain is all in her left shoulder and does radiate down her entire left extremity down to her fingers. Patient states this has been going on since June unrelated to any specific trauma or injury. Patient describes it as a electrical shock sensation with [id number] sensations into her extremities. Patient has tried [id number] Tylenol and ibuprofen along with heat and ice and topicals with minimal relief. Patient states she continues to use naproxen twice a day for her arthritis and will use Tylenol from time to time however it only minimally helps. Patient states that this can be very random when the electrical shock sensation comes. She does frequently bring her arm close to her abdomen for some relief. She is interested in any help we may be able to provide. Patient does states she has just had recent physical therapy however it made her symptoms worse. Patient does also have a history of carpal tunnel syndrome and has gotten injections for this.Patient is prescribed gabapentin 300 mg 4 times a day as been tried on [place] 5 mg and tramadol in the recent past however she states that did not seem to do anything for her pain symptoms. Her Moshe has been reviewed and is appropriate. CC: Lisa Mckenna APRN [facility] Disclaimer: The information contained in this section may have been updated after the patient was seen, as this information can be updated by other users. Medical History Arthritis Diastolic dysfunction GERD (gastroesophageal reflux disease) History of skin cancer HLD (hyperlipidemia) HTN (hypertension) Morbid obesity YOANA (obstructive sleep apnea) Type 2 diabetes mellitus Surgical History History of bilateral knee arthroplasty History of bladder surgery History of cholecystectomy History of tubal ligation Hx of local excision of skin lesion Family History Other Family history of diabetes mellitus Family history of hypertension Family history of stroke Social History (Updated 09/09/23 @ 14:22 by Myriam Geiger RN) Smoking Status: Never smoker alcohol intake: never substance use type: denies use current occupational status: retired Travel in the last 8 weeks: None household members: spouse housing: house marital status: current occupational exposures/hazards: No caffeine: Yes Review of Systems Review of Systems Review of systems:: pertinent systems reviewed and negative unless documented below Review of systems (narrative): Review of Systems: General: No recent weight changes, no fever, no sleep disturbances Respiratory: No cough, no shortness of air, no recurring pulmonary infections Cardiovascular/peripheral vascular: No chest pain, no palpitations, no edema, no shortness of breath Gastrointestinal: No new onset incontinence, normal bowel movements reported Genitourinary: No new onset incontinence Musculoskeletal: Left shoulder pain, left arm pain Psychiatric: [Normal mood/affect] Neurological: [Denies weakness in extremities], [denies balance issues] Meds Home Medications and Allergies Home Medications Medication Instructions Recorded Confirmed Type glimepiride 4 mg tablet 4 mg PO DAILY Diabetes 08/17/22 09/09/23 History insulin glargine 100 unit/mL (3 70 unit SQ AM Diabetes 08/17/22 09/09/23 History mL) subcutaneous pen (Lantus Solostar U-100 Insulin) naproxen 500 mg tablet 500 mg PO BIDP PRN Arthritis 08/17/22 09/09/23 History omeprazole 40 mg capsule,delayed 40 mg PO DAILY GERD 08/17/22 09/09/23 History release atorvastatin 80 mg tablet 80 mg PO HS 30 days #30 tabs 09/08/22 09/09/23 Rx spironolactone 25 mg tablet 50 mg (2 x 25 mg) PO DAILY 30 days 09/08/22 09/09/23 Rx #60 tabs calcium carbonate 600 mg-vitamin 1 tab PO DAILY 12/01/22 09/09/23 History D3 10 mcg (400 unit) chewable tablet (Calcium 600 with Vitamin D3) cetirizine 10 mg tablet 10 mg PO DAILY PRN ALLERGIES 12/01/22 09/09/23 History gabapentin 300 mg capsule 600 mg PO DAILY 12/01/22 09/09/23 History metformin 1,000 mg tablet 500 mg PO BID Diabetes 01/22/23 09/09/23 History montelukast 10 mg tablet 10 mg PO DAILY 01/22/23 09/09/23 History pyridoxine (vitamin B6) 100 mg 100 mg PO BID 02/05/23 09/09/23 History tablet vitamin E 268 mg (400 unit) capsule 268 mg PO DAILY 02/05/23 09/09/23 History olmesartan 40 1 tab PO DAILY 05/07/23 09/09/23 History mg-hydrochlorothiazide 12.5 mg tablet New Prescriptions to Start Prescriptions: Allergies Allergy/AdvReac Type Severity Reaction Status Date / Time No Known Allergies Allergy Verified 05/07/23 13:29 Objective Narrative: Physical Exam: General: Alert and oriented x3, no acute distress, pleasant and cooperative Lungs: Respirations even and unlabored, symmetrical chest expansion Eyes: PERRL Musculoskeletal: Flexion and extension of cervical [spine] somewhat guarded secondary to pain, [antalgic gait noted] positive Spurling's test Neurological: Speech clear, no gross sensory deficit Additional findings Additional findings: [facility] Cervical MRI without contrast September 26, 2022 Findings: There is motion artifact on the study which does somewhat limit evaluation. The visualized posterior fossa and skull base image normally. Mild reversal of the normal lordotic curvature of the cervical spine. No discrete cord signal lesions are evident. The cystic changes noted in the posterior nasopharyngeal soft tissues which are presumably post inflammatory infectious related changes but are not completely assessed in this study. C2-3: Small disc osteophyte complex formation with mild to moderate foraminal narrowing canal is patent C3-4: Disc osteophyte complex formation with moderate canal narrowing and foraminal narrowing C4-5: Disc osteophyte complex formation with moderate foraminal stenosis worse on the right. There is moderate canal narrowing C5-C6: Disc osteophyte complex formation with moderate to severe canal stenosis and foraminal stenosis C6-C7: Disc osteophyte complex formation with severe canal stenosis and foraminal narrowing C7-T1: Disc osteophyte complex formation with mild foraminal narrowing Assessment and Plan *Assessment and plan (1) Degenerative disc disease, cervical: Status: Acute Category: Medical Code(s): M50.30 - Other cervical disc degeneration, unspecified cervical region (2) Cervical radiculopathy: Status: Acute Category: Medical Code(s): M54.12 - Radiculopathy, cervical region (3) Cervical spinal stenosis: Status: Acute Category: Medical Code(s): M48.02 - Spinal stenosis, cervical region (4) Left shoulder pain: Status: Acute Qualifiers: Chronicity: acute Qualified Code(s): M25.512 - Pain in left shoulder Category: Medical Code(s): M25.512 - Pain in left shoulder Plan Patient is experiencing worsening pain in her left shoulder with radiating symptoms down her entire left extremity. Patient's MRI did show significant degenerative disc disease throughout her cervical spine with osteophyte formation and multilevel cervical stenosis most prevalent at the C6-C7 level. I have discussed with the patient due to her limited range of motion of her cervical spine and a positive Spurling's test that she may benefit from a cervical epidural steroid injection. Risk and benefits were discussed with the patient and she would like to proceed forward with this plan of care. Patient denies any blood thinners. I will also order the patient a compounded cream. Patient will be scheduled for a SIMEON C6-C7 under fluoroscopy. Patient has tried and failed conservative therapy such as oral medication, heat and ice, topicals, recent physical therapy and continued at home exercise and stretching. Patient has been instructed to contact the clinic with any concerns before the next appointment. Dr. Graf has reviewed this note and agrees with this plan of care. This note was dictated using voice recognition software and make contain errors or omissions.
[2023-09-09 14:20] VITALS: BP 152/76; PULSE 81; RESP 18; O2SAT 97; BMI 48.0
== END 2023-09-09 23:59 ==
LOC: SC.PAIN 13:03
PROVIDERS: PCP Pediatrics; Visit Provider Nurse Practitioner Family
DX: M48.02 Spinal stenosis, cervical region; M25.512 Pain in left shoulder; M50.123 Cervical disc disorder at C6-C7 level with radiculopathy
CPT/HCPCS: 99202; G0463

== ENCOUNTER → 2023-11-30 08:35 | Outpatient (CLI) | payer MEDICARE, SELFPAY | LOC: SL 08:36 | PROVIDERS: PCP Pediatrics; Visit Provider Physician Assistant | DX: G47.33 Obstructive sleep apnea (adult) (pediatric); G47.36 Sleep related hypoventilation in conditions classified elsewhere | CPT/HCPCS: G0399 ==

== ENCOUNTER 2025-06-02 14:03 | Outpatient (CLI) | payer MEDICARE, SELFPAY ==
--- NOTE | 2025-06-02 14:30 | CA_ITS ---
FINAL REPORT TECHNIQUE: Gross scale, color and spectral doppler images of the bilateral carotid arteries were obtained. CLINICAL HISTORY: Headaches, Dizziness FINDINGS: Peak systolic velocity in the right internal carotid artery is 72 cm/sec. The internal carotid to common carotid artery ratio is 1.3. There is no significant carotid artery stenosis and no significant plaque formation. The right vertebral artery is normal in direction. Peak systolic velocity in the left internal carotid artery is 125 cm/sec. The internal carotid to common carotid artery ratio is 1.9. There is no significant carotid artery stenosis and no significant plaque formation. The left vertebral artery is normal in direction. IMPRESSION: Less than 50% carotid stenosis bilaterally. Reviewed, Interpreted and Dictated by Fadia Wilhelm MD Transcribed by Pamela Patel Authenticated and . [facility]
== END 2025-06-02 23:59 | disposition home or self-care (01) ==
LOC: RT 14:03
PROVIDERS: PCP Pediatrics; Visit Provider Nurse Practitioner
DX: I65.23 Occlusion and stenosis of bilateral carotid arteries (principal)
CPT/HCPCS: 93880